=== PATIENT | female | born 1990 | race Two or more races ===

== ENCOUNTER 2025-06-13 13:56 | Inpatient (IN) | payer OTHER ==
[~2025-06-13] VITALS: Ht 167.6 cm; Wt 133.8 kg
[2025-06-13 16:48] LABS: BASOPHILS % 0.7 % (0.0-2.0); EOSINOPHILS % 1.2 % (0.0-5.0); HEMATOCRIT. 41.0 % (36.0-48.0); HEMOGLOBIN. 13.4 g/dL (12.0-16.0); LYMPHOCYTES % 18.5 % (20.0-50.0); MEAN PLATELET VOLUME 10.2 fl (7.4-10.4); MONOCYTES % 4.8 % (2.0-8.0); NEUTROPHILS % 74.8 % (40.0-76.0); PLATELET 222 x1000/uL (130-400); RED BLOOD CELL COUNT 4.70 mill/uL (4.2-5.4); RED CELL DISTRIBUTION WIDTH 14.2 % (11.6-14.6)
[2025-06-13 17:06] LABS: CREATININE 0.8 mg/dL (0.6-1.0); UREA NITROGEN BLOOD 10 mg/dL (9-23)
[2025-06-13 17:09] LABS: HCG SCREEN NEGATIVE
[2025-06-13 17:16] LABS: TROPONIN I HIGH SENSITIVITY 77 ng/L (3.0-34)
[2025-06-13 21:40] LABS: TROPONIN I HIGH SENSITIVITY 31 ng/L (3.0-34)
[2025-06-13] MEDS: IOHEXOL-350 100 ML BOTTLE ONE (22:46)
[2025-06-14 02:15] VITALS: BP 137/94; PULSE 73; RESP 17; TEMP 36.418
[2025-06-14] MEDS ORDERED: ONDANSETRON HCL 4MG/2ML INJ IV PRN ×2 (02:30→04:15)
[2025-06-14] MEDS ORDERED: ACETAMINOPHEN 325MG TABLET PO PRN ×3 (02:30→04:15)
[2025-06-14] MEDS ORDERED: DIPHENHYDRAMINE 50MG/ML VIAL IV PRN (02:30)
[2025-06-14] MEDS ORDERED: ZOLPIDEM TARTRATE 5MG TABLET PO PRN ×2 (02:30→04:15)
[2025-06-14 03:42] LABS: *AMPHETAMINES SCREEN URINE NEGATIVE (NEGATIVE)
[2025-06-14 03:43] LABS: *BARBITURATES SCREEN URINE NEGATIVE (NEGATIVE); *BENZODIAZEPINES SCREEN URINE NEGATIVE (NEGATIVE); *COCAINE SCREEN URINE NEGATIVE (NEGATIVE); CANNABINOID URINE SCREEN NEGATIVE (NEGATIVE); ECSTASY MDMA SCREEN URINE NEGATIVE (NEGATIVE); METHADONE URINE SCREEN NEGATIVE (NEGATIVE); OPIATES URINE SCREEN NEGATIVE (NEGATIVE); PHENCYCLIDINE URINE SCREEN NEGATIVE (NEGATIVE)
[2025-06-14] MEDS: SODIUM CHLORIDE 0.9% 3ML FLUSH IVF SCH ×2 (06:44)
[2025-06-14 07:00] LABS: TROPONIN I HIGH SENSITIVITY 13 ng/L (3.0-34)
[2025-06-14 08:00] VITALS: BP 127/84; PULSE 82; RESP 16; TEMP 37.1; O2SAT 98
[2025-06-14] MEDS: IBUPROFEN 600MG TABLET PO PRN (08:03)
[2025-06-14] MEDS: AMLODIPINE 2.5MG TABLET PO SCH (08:37)
[2025-06-14] MEDS: FLUTICASONE PROPIONATE 50MCG/SPRAY BOTTLE BOTHNSTRLS SCH (09:00)
[2025-06-14 12:00] VITALS: BP 126/70; PULSE 70; RESP 16; TEMP 36.9; O2SAT 97
[2025-06-14] MEDS: ACETAMINOPHEN 325MG TABLET PO PRN (12:37)
[2025-06-14 16:00] VITALS: BP 117/86; PULSE 72; RESP 18; TEMP 37.1; O2SAT 100
[2025-06-14 20:00] VITALS: BP 139/97; PULSE 67; RESP 18; TEMP 36.1; O2SAT 94
[2025-06-14] MEDS: DULOXETINE HCL 30MG DR CAPSULE PO SCH (20:56)
[2025-06-14] MEDS ORDERED: IPRATROPIUM/ALBUTEROL 0.5-3(2.5)MG/3ML NEB HHN PRN (22:45)
[2025-06-14] MEDS: IPRATROPIUM/ALBUTEROL 0.5-3(2.5)MG/3ML NEB HHN PRN (22:56)
[2025-06-14 22:58] VITALS: PULSE 72; RESP 20; O2SAT 97
[2025-06-15] VITALS: BP 138/95; PULSE 72; RESP 17; TEMP 36.1; O2SAT 98
[2025-06-15 04:00] VITALS: BP 134/97; PULSE 70; RESP 17; TEMP 37.1; O2SAT 98
[2025-06-15 06:59] LABS: BASOPHILS % 0.5 % (0.0-2.0); EOSINOPHILS % 2.4 % (0.0-5.0); HEMATOCRIT. 39.1 % (36.0-48.0); HEMOGLOBIN. 12.9 g/dL (12.0-16.0); LYMPHOCYTES % 20.3 % (20.0-50.0); MEAN PLATELET VOLUME 10.0 fl (7.4-10.4); MONOCYTES % 6.6 % (2.0-8.0); NEUTROPHILS % 70.2 % (40.0-76.0); PLATELET 212 x1000/uL (130-400); RED BLOOD CELL COUNT 4.51 mill/uL (4.2-5.4); RED CELL DISTRIBUTION WIDTH 14.0 % (11.6-14.6)
[2025-06-15 07:20] LABS: CREATININE 0.7 mg/dL (0.6-1.0); UREA NITROGEN BLOOD 6 mg/dL (9-23)
[2025-06-15 07:22] LABS: ASPARTATE AMINOTRANSFERASE 21 IU/L (<34)
[2025-06-15 07:23] LABS: BILIRUBIN TOTAL 0.3 mg/dL (0.1-1.0); PROTEIN TOTAL 6.5 g/dL (6.0-8.3)
[2025-06-15 08:00] VITALS: BP 141/89; PULSE 77; RESP 20; TEMP 36.4; O2SAT 100
[2025-06-15 12:00] VITALS: BP 134/87; PULSE 84; RESP 20; TEMP 36.2; O2SAT 100
[2025-06-15 16:00] VITALS: BP 133/98; PULSE 88; RESP 18; TEMP 36.5; O2SAT 85
[2025-06-15 19:51] VITALS: BP 132/86; PULSE 91; RESP 18; TEMP 36.6; O2SAT 100
[2025-06-16] VITALS: BP 141/76; PULSE 94; RESP 18; TEMP 36.3; O2SAT 96
[2025-06-16 04:00] VITALS: BP 124/91; PULSE 84; RESP 18; TEMP 36.1; O2SAT 99
[2025-06-16 07:46] VITALS: BP 119/87; PULSE 96; RESP 18; TEMP 36.1; O2SAT 99
[2025-06-16 12:00] VITALS: BP 122/84; PULSE 82; RESP 18; TEMP 36; O2SAT 99
[2025-06-16] MEDS ORDERED: ESCI20TA MT (12:22)
== END 2025-06-16 16:09 | disposition home or self-care (01) | DRG 189 ==
LOC: ER 13:56 → 5WST 20:08 → EDBEDREQ 20:13 → EDBEDREQTM 20:13 → ENRESERV 22:38 → 5WST 06-14 00:17
PROVIDERS: ADMIT Internal Medicine; ATTEND Internal Medicine
DX: J96.00 Acute respiratory failure, unspecified whether with hypoxia or hypercapnia (principal); R45.851 Suicidal ideations; E66.9 Obesity, unspecified; F32.9 Major depressive disorder, single episode, unspecified; J45.909 Unspecified asthma, uncomplicated; Z68.42 Body mass index [BMI] 45.0-49.9, adult; R07.89 Other chest pain; E28.2 Polycystic ovarian syndrome; R73.03 Prediabetes
CPT/HCPCS: 36415; 71045; 71275; 80048; 80053; 80305; 80320; 83880; 84484; 84703; 85025; 85379; 93005; 93970; 94640; 99285; A4606; Q9967; G0480